=== PATIENT | female | born 1940 | race Asian ===

== ENCOUNTER 2021-12-05 08:53 | Emergency (ER) | payer MEDICARE ==
[~2021-12-05] VITALS: Ht 162.6 cm; Wt 48.3 kg
[2021-12-05] MEDS ORDERED: AmLODIPine BESYLATE 5 MG TABLET PO ONE (09:30)
[2021-12-05 09:37] LABS: BASOPHILS % (AUTO) 0.5 % (0.0-2.0); EOSINOPHILS % (AUTO) 3.6 % (1.0-6.0); HEMATOCRIT 32.1 % (36-46); HEMOGLOBIN 10.7 g/dL (12.0-16.0); LYMPHOCYTES # (AUTO) 1.8 K/uL (1.0-4.8); LYMPHOCYTES % (AUTO) 15.7 % (22.0-44.0); MEAN CORPUSCULAR HEMOGLOBIN 30.4 pg (26.0-34.0); MEAN CORPUSCULAR HGB CONC 33.3 G/dL (31.0-37.0); MEAN CORPUSCULAR VOLUME 91 fL (80-100); MONOCYTES # (AUTO) 0.7 K/uL (0.1-1.0); MONOCYTES % (AUTO) 6.3 % (2.0-9.0); NEUTROPHILS # (AUTO) 8.2 K/uL (1.8-7.7); NEUTROPHILS % (AUTO) 73.9 % (40.0-70.0); PLATELET COUNT (AUTO) 312 K/uL (150-450); RED BLOOD CELL COUNT(AUTO) 3.52 MIL/uL (4.00-5.20); RED CELL DISTRIBUTION WIDTH 12.8 % (11.5-14.5)
[2021-12-05 09:44] LABS: CALCIUM, TOTAL 9.7 mg/dL (8.8-10.5); CREATININE 1.47 mg/dL (0.60-1.30); POTASSIUM 3.7 mmol/L (3.5-5.1)
[2021-12-05 09:50] LABS: ALBUMIN 2.7 g/dL (3.4-5.0); BILIRUBIN,TOTAL 0.4 mg/dL (0.1-1.0); TOTAL PROTEIN, SERUM 7.7 g/dL (6.4-8.2)
[2021-12-05] MEDS ORDERED: LABE200T56 PO (09:55)
[2021-12-05] MEDS ORDERED: ROSU10TA72 PO (09:55)
[2021-12-05] MEDS ORDERED: LOSA-382 PO (09:55)
[2021-12-05] MEDS ORDERED: FISH1CAP27 PO (09:59)
[2021-12-05] MEDS ORDERED: SITA25 PO (09:59)
[2021-12-05] MEDS ORDERED: GLIP10 PO (09:59)
[2021-12-05] MEDS ORDERED: FERR-89 PO (09:59)
[2021-12-05 13:37] VITALS: BP 137/64
== END 2021-12-05 13:41 | disposition home or self-care (01) ==
LOC: EMS 08:56
DX: E11.649 Type 2 diabetes mellitus with hypoglycemia without coma (principal); I10 Essential (primary) hypertension
CPT/HCPCS: 80053; 82962; 85025; 99285